=== PATIENT | female | born 1935 | race Two or more races ===

== ENCOUNTER 2023-04-13 14:01 | Inpatient (IN) | payer OTHER ==
[~2023-04-13] VITALS: Ht 162.6 cm; Wt 61.2 kg
[2023-04-13] MEDS ORDERED: 0.9 % SODIUM CHLORIDE 500 ML IV SCH (16:15)
[2023-04-13] MEDS ORDERED: FAMOTIDINE/PF 20 MG/2 ML VIAL IV ONE (16:15)
[2023-04-13] MEDS ORDERED: DILTIAZEM HCL 25 MG/5 ML VIAL IV ONE (16:15)
[2023-04-13 16:52] LABS: HEMATOCRIT 39.2 % (36.0-45.00); HEMOGLOBIN 13.1 g/dL (12.0-15.00); MEAN CELL VOLUME 92.7 fL (80.00-100.00); MEAN CORPUSCULAR HGB CONC 33.4 g/dl (32.0-36.0); PLATELET COUNT 257 K/uL (150-450); RED BLOOD COUNT 4.23 M/uL (4.00-6.00); RED CELL DISTRIBUTION WIDTH 17.1 % (11.5-14.5)
[2023-04-13 17:14] LABS: CALCIUM 9.2 mg/dL (8.5-10.1); CREATININE SERUM 0.7 mg/dL (0.55-1.02); GFR 79.34; INR 1.1; PARTIAL THROMBOPLASTIN TIME 26.2 SECONDS (22.0-34.0); POTASSIUM 3.33 mEq/L (3.5-5.1); PROTHROMBIN TIME 11.5 SECONDS (9.0-11.5)
[2023-04-13] MEDS ORDERED: ENOXAPARIN SODIUM 60 MG/0.6 ML SYRINGE SUBCUTANEO ONE (17:30)
[2023-04-13] MEDS ORDERED: FUROsemide 20 MG/2 ML VIAL IV ONE (17:30)
[2023-04-13] MEDS ORDERED: DILTIAZEM HCL 125 MG in 0.9 % SODIUM CHLORIDE 100 ML IV SCH (17:30)
[2023-04-13] MEDS ORDERED: FUROsemide 20 MG/2 ML VIAL IV SCH (18:04)
[2023-04-13] MEDS ORDERED: ONDANSETRON HCL 4 MG in 0.9 % SODIUM CHLORIDE 50 ML IV PRN (18:15)
[2023-04-13] MEDS ORDERED: ACETAMINOPHEN 500 MG GEL..CAP PO PRN (18:15)
[2023-04-13] MEDS ORDERED: AMIODARONE HCL 50 MG/ML AMPUL IV ONE (18:30)
[2023-04-13] MEDS ORDERED: IPRATROPIUM BROMIDE 0.5 MG/2.5 ML AMPUL.NEB IH SCH (18:31)
[2023-04-13] MEDS ORDERED: NITROGLYCERIN IN 5 % DEXTROSE 250 ML IV SCH (18:31)
[2023-04-13 18:51] LABS: ABG PH 7.422 (7.35-7.45); ABG PO2 75.5 mmHg (80-100); ABG pCO2 37.8 mmHg (35-45); BASE EXCESS -0.1 mmol/l; SaO2 95.3 %; Tco2 25.2 mmol/l
[2023-04-13 18:52] LABS: allen test SATISFACTORY; o2 21 %; puncture site RADIAL LEFT
[2023-04-13 19:14] LABS: MAGNESIUM 2.4 mg/dL (1.8-2.4); PHOSPHOROUS 3.5 mg/dL (2.5-4.9)
[2023-04-13 20:16] LABS: URINE APPEARANCE Clear; URINE BILIRRUBIN Negative (NEGATIVE); URINE BLOOD Small; URINE COLOR Yellow; URINE GLUCOSE Negative (NEGATIVE); URINE LEUKOCYTE Negative; URINE NITRATE Negative; URINE PROTEIN Negative (NEGATIVE)
[2023-04-13 20:40] LABS: URINE UROBILINOGEN 0.2 E.U./dl
[2023-04-13 20:41] LABS: URINE EPITHELIAL CELLS 0.4 uL (0.0-38.8); URINE WBC 1.3 uL (0.0-23.2)
[2023-04-14] MEDS ORDERED: ENOXAPARIN SODIUM 60 MG/0.6 ML SYRINGE SUBCUTANEO SCH (06:00)
[2023-04-14 07:21] LABS: CHOL HDL RATIO 3.8 (0-5.0)
[2023-04-14 07:25] LABS: TSH 17.5 uIU/mL (0.358-3.74)
[2023-04-14] MEDS ORDERED: METOPROLOL TARTRATE 25 MG TABLET PO SCH (09:00)
[2023-04-14] MEDS ORDERED: ATORVASTATIN CALCIUM 20 MG TABLET PO SCH (09:00)
[2023-04-14] MEDS ORDERED: FAMOTIDINE/PF 20 MG in 0.9 % SODIUM CHLORIDE 8 ML IV PUSH SCH (09:00)
[2023-04-14] MEDS ORDERED: CHLORHEXIDINE GLUCONATE 120 ML BOTTLE TOP ONE (10:47)
[2023-04-15] MEDS ORDERED: LEVOTHYROXINE SODIUM 25 MCG TABLET PO SCH (06:00)
[2023-04-15] MEDS ORDERED: AMIODARONE HCL 200 MG TABLET PO SCH (09:00)
[2023-04-16] MEDS ORDERED: HALOPERIDOL LACTATE 5 MG/ML AMPUL IV PRN (00:15)
[2023-04-16] MEDS ORDERED: DIPHENHYDRAMINE HCL 50 MG/ML VIAL 1ML IV PRN (00:15)
[2023-04-17 05:39] LABS: HEMATOCRIT 39.8 % (36.0-45.00); HEMOGLOBIN 13.3 g/dL (12.0-15.00); MEAN CELL VOLUME 92.2 fL (80.00-100.00); MEAN CORPUSCULAR HEMOGLOBIN 30.8 pg (27.00-32.0); MEAN CORPUSCULAR HGB CONC 33.4 g/dl (32.0-36.0); PLATELET COUNT 224 K/uL (150-450); RED BLOOD COUNT 4.32 M/uL (4.00-6.00); RED CELL DISTRIBUTION WIDTH 16.2 % (11.5-14.5)
[2023-04-17] MEDS ORDERED: LEVOTHYROXINE SODIUM 50 MCG TABLET PO SCH (06:00)
[2023-04-17 06:19] LABS: ALBUMIN 2.6 gm/dL (3.4-5.0); BILIRUBIN TOTAL 0.98 mg/dL (0.3-1.2); CALCIUM 8.6 mg/dL (8.5-10.1); CREATININE SERUM 0.67 mg/dL (0.55-1.02); GFR 83.45; GLOBULINA 3.1 G/DL (2.4-3.5); TOTAL PROTEIN 5.7 gm/dL (6.4-8.2)
[2023-04-17 07:03] LABS: POTASSIUM 3.01 mEq/L (3.5-5.1); TSH 34.1 uIU/mL (0.358-3.74)
[2023-04-17] MEDS ORDERED: METOPROLOL SUCCINATE 50 MG TAB.SR.24H PO SCH (09:00)
[2023-04-18] MEDS ORDERED: METOPROLOL SUCCINATE 50 MG TAB.SR.24H PO SCH (09:00)
[2023-04-18] MEDS ORDERED: FAMOtidine 20 MG TABLET PO SCH (09:00)
[2023-04-18] MEDS ORDERED: METOPROLOL SUCCINATE 50 MG,METOPROLOL SUCCINATE 25 MG PO SCH (09:00)
[2023-04-18] MEDS ORDERED: LEVOTHYROXINE SODIUM 100 MCG/VIAL VIAL IV SCH (17:00)
[2023-04-19] MEDS ORDERED: FUROsemide 20 MG/2 ML VIAL IV SCH (21:00)
[2023-04-20] MEDS ORDERED: METOPROLOL SUCCINATE 100 MG TAB.SR.24H PO SCH (09:00)
[2023-04-20] MEDS ORDERED: LEVOTHYROXINE75 MCG PO (11:43)
[2023-04-20] MEDS ORDERED: FAMOTIDINE20 MG PO (11:44)
[2023-04-20] MEDS ORDERED: FUROSEMIDE10 MG/1 M1 PO (11:44)
[2023-04-20] MEDS ORDERED: TOPROL XL100 M1 PO (11:45)
[2023-04-21] MEDS ORDERED: LEVOTHYROXINE SODIUM 75 MCG TABLET PO SCH (06:00)
== END 2023-04-20 19:38 | disposition home or self-care (01) | DRG 293 ==
LOC: ER 14:01 → ICU-2 18:22 → ICU 18:22 → MEDI 04-16 20:45
PROVIDERS: General Practice; Internal Medicine Endocrinology, Diabetes & Metabolism; ADMIT Internal Medicine; ATTEND Internal Medicine
PROC: B24BYZZ Ultrasonography of Heart with Aorta using Other Contrast (ICD-10-PCS; principal; 2023-04-13)
DX: I50.9 Heart failure, unspecified (principal); I48.91 Unspecified atrial fibrillation; R06.02 Shortness of breath; I50.20 Unspecified systolic (congestive) heart failure; E03.8 Other specified hypothyroidism